=== PATIENT | male | born 1970 | race Caucasian/White ===

== ENCOUNTER 2021-10-23 11:44 | Inpatient (IN) | payer MEDICAID ==
[~2021-10-23] VITALS: Ht 167.6 cm; Wt 88.5 kg
[2021-10-23] MEDS ORDERED: ASPIRIN 81MG TABLET PO ONE (13:00)
[2021-10-23] MEDS ORDERED: NITROGLYCERIN 0.4MG TABLET SL SL PRN (13:00)
[2021-10-23] MEDS ORDERED: FUROSEMIDE 40MG/4ML VIAL IVP ONE (13:15)
[2021-10-23 14:43] LABS: HEMATOCRIT. 39.7 % (42.0-52.0); HEMOGLOBIN. 13.4 g/dL (14.0-18.0); MEAN CORPUSCULAR HEMOGLOBIN 27.9 pg (28.0-32.0); MEAN CORPUSCULAR VOLUME 82.7 fL (80.0-94.0); PLATELET 209 x1000/uL (130-400); RED CELL DISTRIBUTION WIDTH 13.6 % (11.6-14.6)
[2021-10-23 14:52] LABS: D-DIMER 3.48 mg/L FEU (<0.50); INR 1.2; PARTIAL THROMBOPLASTIN TIME 33.8 sec (23.4-31.0); PROTHROMBIN TIME 12.5 sec (9.6-11.0)
[2021-10-23 14:53] LABS: CHLORIDE 97 mEq/L (98-107)
[2021-10-23] MEDS ORDERED: IPRATROPIUM/ALBUTEROL 0.5-3(2.5)MG/3ML NEB HHN PRN (15:45)
[2021-10-23] MEDS ORDERED: ACETAMINOPHEN 325MG TABLET PO PRN (15:45)
[2021-10-23] MEDS ORDERED: DIPHENHYDRAMINE 50MG/ML VIAL IV PRN (15:45)
[2021-10-23] MEDS ORDERED: CLONIDINE 0.1MG TABLET PO PRN (15:45)
[2021-10-23] MEDS ORDERED: ONDANSETRON HCL 4MG/2ML INJ IV PRN (15:45)
[2021-10-23] MEDS ORDERED: IOHEXOL-350 100 ML BOTTLE ONE (15:55)
[2021-10-23] MEDS: ENOXAPARIN 40MG/0.4ML SYR SUBCUT SCH (16:55)
[2021-10-23 16:58] LABS: PLATELET ESTIMATE NORMAL
[2021-10-23 17:46] LABS: *AMPHETAMINES SCREEN URINE NEGATIVE (NEGATIVE); *BARBITURATES SCREEN URINE NEGATIVE (NEGATIVE); *BENZODIAZEPINES SCREEN URINE NEGATIVE (NEGATIVE); *COCAINE SCREEN URINE NEGATIVE (NEGATIVE); CANNABINOID URINE SCREEN NEGATIVE (NEGATIVE); METHADONE URINE SCREEN NEGATIVE (NEGATIVE); OPIATES URINE SCREEN NEGATIVE (NEGATIVE); PHENCYCLIDINE URINE SCREEN NEGATIVE (NEGATIVE)
[2021-10-23 17:54] VITALS: BP 105/67
[2021-10-23] MEDS ORDERED: ATOR40TA70 PO (19:05)
[2021-10-23] MEDS ORDERED: BECL10.6 INH (19:09)
[2021-10-23] MEDS ORDERED: ALBU6.7H9 INH (19:09)
[2021-10-23 20:00] VITALS: BP 93/57
[2021-10-23] MEDS ORDERED: *PATIENT'S OWN MEDICATION STORAGE XX SCH (21:45)
[2021-10-24] VITALS: BP 110/64
[2021-10-24 04:00] VITALS: BP 96/63
[2021-10-24 08:00] VITALS: BP 94/65
[2021-10-24] MEDS ORDERED: FUROSEMIDE 40MG/4ML VIAL IVP SCH (09:00)
[2021-10-24] MEDS: SPIRONOLACTONE 25MG TABLET PO SCH (09:26)
[2021-10-24] MEDS: METOPROLOL TARTRATE 25MG TABLET PO SCH ×2 (10:45→20:47)
[2021-10-24 12:00] VITALS: BP 98/60
[2021-10-24 16:00] VITALS: BP 96/59
[2021-10-24] MEDS: ENOXAPARIN 40MG/0.4ML SYR SUBCUT SCH (16:24)
[2021-10-24 20:00] VITALS: BP 107/70
[2021-10-24] MEDS ORDERED: DEXTROSE 50% WATER 50ML SYRINGE IV PRN (21:45)
[2021-10-25] VITALS: BP 105/62
[2021-10-25 04:00] VITALS: BP 94/52
[2021-10-25] MEDS: BLOOD SUGAR DIAGNOSTIC STRIP TEST SCH ×4 (06:00→22:16)
[2021-10-25] MEDS ORDERED: MIDAZOLAM HCL 2 MG/2 ML VIAL ONE ×2 (07:21→09:27)
[2021-10-25] MEDS ORDERED: HEPARIN 1000 UNITS/ML 10ML ONE (07:21)
[2021-10-25] MEDS ORDERED: IODIXANOL 320MG/ML 100 ML BOTTLE IV ONE (07:21)
[2021-10-25] MEDS ORDERED: FENTANYL CITRATE/PF 50MCG/ML 2ML VIAL ONE (07:21)
[2021-10-25] MEDS ORDERED: DIPHENHYDRAMINE 50MG/ML VIAL ONE (07:22)
[2021-10-25] MEDS ORDERED: VERAPAMIL HCL 2.5 MG/1 ML 2ML VIAL IV ONE (07:22)
[2021-10-25] MEDS ORDERED: TETRACAINE/BENZOCAINE/BUTAMBEN 20 GM SPRAY MM ONE (07:23)
[2021-10-25] MEDS ORDERED: LIDOCAINE HCL 2% JELLY 5ML ONE (07:23)
[2021-10-25 07:54] VITALS: BP 104/69
[2021-10-25] MEDS: INSULIN LISPRO 100 UNITS/ML SUBCUT SCH ×4 (08:10→22:17)
[2021-10-25] MEDS ORDERED: LIDOCAINE HCL 1% 10 MG/ML 10ML VIAL ONE (08:36)
[2021-10-25] MEDS ORDERED: NICARDIPINE 100MCG/ML 10ML VIAL (CATH LAB) IV ONE (08:58)
[2021-10-25] MEDS: SPIRONOLACTONE 25MG TABLET PO SCH (09:00)
[2021-10-25] MEDS: METOPROLOL TARTRATE 25MG TABLET PO SCH ×2 (09:00→21:00)
[2021-10-25] MEDS ORDERED: ACETAMINOPHEN 325MG TABLET PO PRN (09:30)
[2021-10-25] MEDS ORDERED: ATROPINE SULFATE 1MG/10ML SYR IV PRN (09:30)
[2021-10-25 11:10] LABS: RHEUMATOID FACTOR SCREEN POSITIVE (NEGATIVE)
[2021-10-25 13:22] VITALS: BP 97/64
[2021-10-25 15:45] VITALS: BP 94/64
[2021-10-25] MEDS: ENOXAPARIN 40MG/0.4ML SYR SUBCUT SCH (17:12)
[2021-10-25 20:00] VITALS: BP 91/58
[2021-10-26] VITALS: BP 94/52
[2021-10-26 04:00] VITALS: BP 94/53
[2021-10-26] MEDS: INSULIN LISPRO 100 UNITS/ML SUBCUT SCH ×2 (06:22→11:16)
[2021-10-26] MEDS: BLOOD SUGAR DIAGNOSTIC STRIP TEST SCH ×2 (06:22→11:16)
[2021-10-26 06:47] LABS: BASOPHILS % 0.3 % (0.0-2.0); EOSINOPHILS % 1.2 % (0.0-5.0); HEMATOCRIT. 35.7 % (42.0-52.0); HEMOGLOBIN. 12.3 g/dL (14.0-18.0); LYMPHOCYTES % 14.7 % (20.0-50.0); MEAN CORPUSCULAR VOLUME 81.5 fL (80.0-94.0); MEAN PLATELET VOLUME 8.1 fl (7.4-10.4); MONOCYTES % 9.9 % (2.0-8.0); NEUTROPHILS % 73.9 % (40.0-76.0); PLATELET 209 x1000/uL (130-400); RED BLOOD CELL COUNT 4.38 mill/uL (4.7-6.1); RED CELL DISTRIBUTION WIDTH 13.5 % (11.6-14.6)
[2021-10-26 06:57] LABS: CHLORIDE 102 mEq/L (98-107)
[2021-10-26 07:57] VITALS: BP 87/57
[2021-10-26] MEDS: SPIRONOLACTONE 25MG TABLET PO SCH (08:29)
[2021-10-26] MEDS: METOPROLOL TARTRATE 25MG TABLET PO SCH (08:29)
[2021-10-26 12:04] VITALS: BP 106/68
[2021-10-26] MEDS ORDERED: METO25TA6 MT (13:02)
[2021-10-26 14:29] VITALS: BP 110/70
== END 2021-10-26 15:15 | disposition home or self-care (01) | DRG 192 ==
LOC: ER 11:44 → 7WST 15:17 → ER 16:50 → ENRESERV 17:26
PROVIDERS: ADMIT Internal Medicine; ATTEND Internal Medicine
PROC: B211YZZ Fluoroscopy of Multiple Coronary Arteries using Other Contrast (ICD-10-PCS; principal; 2021-10-25)
PROC: B24BZZ4 Ultrasonography of Heart with Aorta, Transesophageal (ICD-10-PCS; 2021-10-25)
DX: I08.0 Rheumatic disorders of both mitral and aortic valves (principal); I50.33 Acute on chronic diastolic (congestive) heart failure; E87.1 Hypo-osmolality and hyponatremia; Z20.822 Contact with and (suspected) exposure to COVID-19; E11.65 Type 2 diabetes mellitus with hyperglycemia; E78.00 Pure hypercholesterolemia, unspecified; E78.5 Hyperlipidemia, unspecified; J45.909 Unspecified asthma, uncomplicated; F10.10 Alcohol abuse, uncomplicated
CPT/HCPCS: 36415; 71045; 71275; 80048; 80053; 80305; 82962; 83036; 83880; 84484; 85025; 85379; 86430; 86431; 87426; 93005; 93306; 93312; 93454; 93970; 99285; C1769; C1887; C1893; C9803; J1200; J1644; J1650; J1940; J2250; J3010; J3490; Q9967